=== PATIENT | female | born 2000 | race African-American/Black ===

== ENCOUNTER 2019-04-23 12:36 | Emergency (ER) | payer SELFPAY ==
[~2019-04-23] VITALS: Ht 157.5 cm; Wt 56.7 kg
[2019-04-23 12:58] VITALS: BP 122/59
[2019-04-23] MEDS ORDERED: CEPH-264 PO (13:17)
--- NOTE | 2019-04-23 13:18 | PHYS DOC ---
Past Medical History Past Medical History: No Pertinent History Additional Past Medical Histor: "dizzyness" Past Surgical History: No Surgical History Alcohol Use: None Drug Use: None Adult General Chief Complaint Chief Complaint: SKIN PROBLEM [facility] HPI Patient is a 18 year old female who presents with 1 week of a right upper thigh abscess that is open and draining. Patient states it no longer hurts and she has not been running fevers. Patient states she is now getting a small bump on the right inner knee and that appears to be another abscess. Patient currently has 0 out of 10 pain. Vital signs are within normal limits. She is no known drug allergies. Review of Systems Review of Systems Constitutional: Denies fever or chills [] Eyes: Denies change in visual acuity, redness, or eye pain [] HENT: Denies nasal congestion or sore throat [] Respiratory: Denies cough or shortness of breath [] Cardiovascular: No additional information not addressed in HPI [] GI: Denies abdominal pain, nausea, vomiting, bloody stools or diarrhea [] : Denies dysuria or hematuria [] Musculoskeletal: Denies back pain or joint pain [] Integument: Right upper outer thigh abscess open. Right inner knee bump. Denies rash or skin lesions [] Neurologic: Denies headache, focal weakness or sensory changes [] Endocrine: Denies polyuria or polydipsia [] All other systems were reviewed and found to be within normal limits, except as documented in this note. Allergies Allergies Allergies Coded Allergies Type Severity Reaction Last Updated Verified No Known Drug Allergies 06/14/14 No Physical Exam Physical Exam Constitutional: Well developed, well nourished, no acute distress, non-toxic appearance. [] HENT: Normocephalic, atraumatic, bilateral external ears normal, oropharynx moist, no oral exudates, nose normal. [] Eyes: PERRLA, EOMI, conjunctiva normal, no discharge. [] Neck: Normal range of motion, no tenderness, supple, no stridor. [] Cardiovascular:Heart rate regular rhythm, no murmur [] Lungs & Thorax: Bilateral breath sounds clear to auscultation [] Abdomen: Bowel sounds normal, soft, no tenderness, no masses, no pulsatile masses. [] Skin: Right outer upper thigh nickel-sized open, draining abscess without redness or induration and nontender. Right inner knee times-sized bump that is hard and non-draining, without redness. Warm, dry, no erythema, no rash. [] Back: No tenderness, no CVA tenderness. [] Extremities: No tenderness, no cyanosis, no clubbing, ROM intact, no edema. [] Neurologic: Alert and oriented X 3, normal motor function, normal sensory function, no focal deficits noted. [] Psychologic: Affect normal, judgement normal, mood normal. [] Current Patient Data Vital Signs Vital Signs Date Time Temp Pulse Resp B/P (MAP) Pulse Ox O2 Delivery O2 Flow Rate FiO2 04/23/19 12:58 98.4 96 18 122/59 (80) 96 Room Air 98.4 EKG EKG [] Radiology/Procedures Radiology/Procedures [] Course & Med Decision Making Course & Med Decision Making Patient is a 18 year old female who presents with 1 week of a right upper thigh abscess that is open and draining. Patient states it no longer hurts and she mishra s not been running fevers. Patient states she is now getting a small bump on the right inner knee and that appears to be another abscess. Patient currently has 0 out of 10 pain. Vital signs are within normal limits. She is no known drug allergies. Patient has a open nickel-sized right upper thigh abscess that is open and draining scant fluid. There is no redness around area. Patient is afebrile. Patient has a small dime-sized hard raised bump on her right inner knee that is non-red and non-draining and not open. She states it is only slightly tender but fears that it is another abscess. Patient is put on Keflex antibiotic and to keep the areas clean and dry. Patient is told to use a heating pack on the areas to facilitate draining. Patient is told to not squeeze the areas as she had been. Patient is told that if she is not getting better or begins running a fever or there is increased redness and pain that she needs to return to the ED or follow-up with a primary care provider. Dragon Disclaimer Dragon Disclaimer This electronic medical record was generated, in whole or in part, using a voice recognition dictation system. Departure Departure Impression: Primary Impression: Abscess Disposition: 01 HOME, SELF-CARE Condition: STABLE Referrals: NO PCP (PCP) Patient Instructions: Abscess, Abscess, Care After Additional Instructions: Take medications as prescribed. Take Ibuprofen for pain. Try using a heating pad on the areas. Keep clean and covered, especially if draining. Return for worsening or fever. Follow up with a primary care doctor if not getting better. Scripts Cephalexin (KEFLEX) 500 Mg Capsule 1 CAP PO TID for 7 Days, #21 CAP Prov: RAEGAN BUCKLEY APRN 04/23/19 RAEGAN BUCKLEY APRN Apr 23, 2019 13:17
== END 2019-04-23 13:20 | disposition home or self-care (01) ==
LOC: ER 12:36
DX: L02.415 Cutaneous abscess of right lower limb (principal)
CPT/HCPCS: 99283

== ENCOUNTER 2019-12-24 10:51 | Emergency (ER) | payer SELFPAY ==
[~2019-12-24] VITALS: Ht 154.9 cm; Wt 56.8 kg
[~2019-12-24 10:51] MED LIST: CEPH-264 PO
[2019-12-24 11:24] VITALS: BP 107/62
--- NOTE | 2019-12-24 11:24 | PHYS DOC ---
Past Medical History Past Medical History: No Pertinent History Additional Past Medical Histor: "dizzyness" (SHEREEN PADGETT APRN) Past Surgical History: No Surgical History (SHEREEN PADGETT APRN) Smoking Status: Never Smoker Alcohol Use: None Drug Use: None (SHEREEN PADGETT APRN) Adult General Chief Complaint Chief Complaint: FEVER HPI HPI Patient is a 19 year old female who presents with complains of fever since this morning. Patient had her mask on the chair. I requested she put the mask back on, she is talking on the phone. She states she knows she doesn't have the flu because she talked to somebody else and does not want to put the mask on. She will not get off the phone despite being asked to. She also states she has constipation. She states she's not had a bowel movement 2 days, she reports she has not tried anything [id number]. She denies being . She continues to be on the phone infact she was on video chat video. I showed of the sign in the room stating they can not be recording or be on the phone during the visit. She continued being on the phone. I asked her if she wants me to come back, she continued being on the phone stating i can return later. Informed her she can use OTC medicines for her constipation. She continued to talk on the taylor ne and video chat. I left the room MSE was done per hospital protocal. (SHEREEN PADGETT APRN) Review of Systems Review of Systems Constitutional: reports fever Eyes: Denies change in visual acuity, redness, or eye pain [] HENT: Denies nasal congestion or sore throat [] Respiratory: Denies cough or shortness of breath [] Cardiovascular: No additional information not addressed in HPI [] GI:Reports constipation. Denies abdominal pain, nausea, vomiting, bloody stools or diarrhea [] : Denies dysuria or hematuria [] Musculoskeletal: Denies back pain or joint pain [] Integument: Denies rash or skin lesions [] Neurologic: Denies headache, focal weakness or sensory changes [] All other systems were reviewed and found to be within normal limits, except as documented in this note. (SHEREEN PADGETT APRN) Allergies Allergies Allergies Coded Allergies Type Severity Reaction Last Updated Verified No Known Drug Allergies 06/14/14 No (PUSHPA APONTE DO) Physical Exam Physical Exam Constitutional: Well developed, well nourished, no acute distress, non-toxic appearance. [] HENT: Normocephalic, atraumatic, bilateral external ears normal, oropharynx moist, no oral exudates, nose normal. [] Eyes: PERRLA, EOMI, conjunctiva normal, no discharge. [] Neck: Normal range of motion, no tenderness, supple, no stridor. [] Cardiovascular:Heart rate regular rhythm, no murmur [] Lungs & Thorax: Bilateral breath sounds clear to auscultation [] Abdomen: Bowel sounds normal, soft, no tenderness, no masses, no pulsatile masses. [] Skin: Warm, dry, no erythema, no rash. [] Back: No tenderness, no CVA tenderness. [] Extremities: No tenderness, no cyanosis, no clubbing, ROM intact, no edema. [] Neurologic: Alert and oriented X 3, normal motor function, normal sensory function, no focal deficits noted. [] Psychologic: Affect normal, judgement normal, mood normal. [] (SHEREEN PADGETT APRN) Current Patient Data Vital Signs Vital Signs Date Time Temp Pulse Resp B/P (MAP) Pulse Ox O2 Delivery O2 Flow Rate FiO2 12/24/19 11:24 98.4 92 16 107/62 (77) 100 Room Air 98.4 (PUSHPA APONTE DO) EKG EKG [] (SHEREEN PADGETT APRN) Radiology/Procedures Radiology/Procedures [] (SHEREEN PADGETT APRN) Course & Med Decision Making Course & Med Decision Making Pertinent Labs and Imaging studies reviewed. (See chart for details) See HPI MSE was done per hospital protocal. (SHEREEN PADGETT APRN) Dragon Disclaimer Dragon Disclaimer This electronic medical record was generated, in whole or in part, using a voice recognition dictation system. (SHEREEN PADGETT APRN) Departure Departure Impression: Primary Impression: Constipation Additional Impression: Fever Disposition: AGAINST MEDICAL ADVICE Condition: STABLE Referrals: NO PCP (PCP) Attending Signature Attending Signature I have reviewed the PA/[employer]'s note and plan of care. I was available for consultation as needed during the patient's visit in the emergency department. I agree with the clinical impression, plan, and disposition. (APONTE,PUSHPA R DO) Problem Qualifiers Primary Impression: Constipation Constipation type: unspecified constipation type Qualified Codes: K59.00 - Constipation, unspecified Additional Impression: Fever Fever type: unspecified Qualified Codes: R50.9 - Fever, unspecified MUTUNGASHEREEN APRN Dec 24, 2019 11:24 PUSHPA APONTE DO Dec 24, 2019 15:30
== END 2019-12-24 11:48 | disposition left against medical advice (07) ==
LOC: ER 10:51
DX: K59.00 Constipation, unspecified (principal); R50.9 Fever, unspecified
CPT/HCPCS: 99281

== ENCOUNTER 2021-10-07 08:15 | Emergency (ER) | payer SELFPAY ==
[~2021-10-07] VITALS: Ht 160 cm; Wt 54.5 kg
[2021-10-07 08:33] VITALS: BP 114/82
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
[2021-10-07] MEDS ORDERED: ORPH100T PO (09:23)
[2021-10-07] MEDS: ORPHENADRINE CITRATE 60 MG/2 ML VIAL. IM ONE (09:52)
[2021-10-07] MEDS: HYDROmorphone 2 MG/ML VIAL IM ONE (09:53)
== END 2021-10-07 10:00 | disposition home or self-care (01) ==
LOC: ER 08:15
DX: M79.605 Pain in left leg (principal); F17.200 Nicotine dependence, unspecified, uncomplicated
CPT/HCPCS: 96372; 99284; J1170; J2360